=== PATIENT | female | born 1955 | race Caucasian/White ===

== ENCOUNTER → 2022-08-16 12:03 | Outpatient (BNVA) | payer MEDICARE, OTHER, SELFPAY | PROVIDERS: PCP Family Medicine; Visit Provider Specialist | DX: G25.0 Essential tremor (principal); G24.3 Spasmodic torticollis; G43.711 Chronic migraine without aura, intractable, with status migrainosus; R47.01 Aphasia | CPT/HCPCS: 99204 ==

== ENCOUNTER → 2022-09-29 07:32 | Outpatient (BNVA) | payer MEDICARE, OTHER, SELFPAY | PROVIDERS: PCP Family Medicine; Visit Provider Specialist | DX: G24.3 Spasmodic torticollis (principal); G25.0 Essential tremor; G43.711 Chronic migraine without aura, intractable, with status migrainosus; G31.84 Mild cognitive impairment of uncertain or unknown etiology | CPT/HCPCS: 64616; 99213; J0585 ==

== ENCOUNTER → 2023-01-02 13:37 | Outpatient (BNVA) | payer MEDICARE, OTHER, SELFPAY | PROVIDERS: PCP Family Medicine; Visit Provider Specialist | DX: G24.3 Spasmodic torticollis (principal); G25.0 Essential tremor; G31.84 Mild cognitive impairment of uncertain or unknown etiology; M54.50 Low back pain, unspecified | CPT/HCPCS: 99214 ==

== ENCOUNTER → 2023-02-02 11:56 | Outpatient (BNVA) | payer MEDICARE, OTHER, SELFPAY | PROVIDERS: PCP Family Medicine; Visit Provider Specialist | DX: G25.0 Essential tremor (principal); G31.84 Mild cognitive impairment of uncertain or unknown etiology; G24.3 Spasmodic torticollis | CPT/HCPCS: 64616; J0585 ==

== ENCOUNTER → 2023-05-11 10:20 | Outpatient (BNVA) | payer OTHER, SELFPAY | PROVIDERS: PCP Family Medicine; Visit Provider Specialist | DX: G24.3 Spasmodic torticollis (principal); G31.84 Mild cognitive impairment of uncertain or unknown etiology; G43.711 Chronic migraine without aura, intractable, with status migrainosus | CPT/HCPCS: 64616; 96116; 99214; J0585 ==

== ENCOUNTER → 2023-08-17 10:28 | Outpatient (BNVA) | payer OTHER, SELFPAY | PROVIDERS: PCP Family Medicine; Visit Provider Specialist | DX: G24.3 Spasmodic torticollis (principal); G31.84 Mild cognitive impairment of uncertain or unknown etiology; G25.0 Essential tremor | CPT/HCPCS: 99214 ==

== ENCOUNTER → 2023-11-16 09:39 | Outpatient (BNVA) | payer OTHER, SELFPAY | PROVIDERS: PCP Family Medicine; Visit Provider Specialist | DX: G24.3 Spasmodic torticollis (principal); M25.512 Pain in left shoulder; M50.022 Cervical disc disorder at C5-C6 level with myelopathy | CPT/HCPCS: 20610; 64616; 99214; J0585; J1010; J3490 ==

== ENCOUNTER 2023-12-22 15:24 | Outpatient (CLI) | payer OTHER, SELFPAY ==
--- NOTE | 2023-12-22 16:00 | MR_ITS ---
WS: [id number] MRI LEFT SHOULDER NONCONTRAST TECHNIQUE: Sagittal T2, coronal T1, T2 and proton density imaging. Axial gradient PDE imaging. CLINICAL INFORMATION: M25.512 - Pain in left shoulder COMPARISON: None. FINDINGS: Moderate degenerative arthritis AC joint with slight subacromial spurring. Mild downsloping acromion with slight impingement distal supraspinatus. Tendinopathy distal supraspinatus. Mild chronic thinnin g of the supraspinatus. Trace subacromial fluid. Normal infraspinatus. Normal teres minor. Normal subscapularis. Normal biceps tendon in the bicipital groove. Intra-articular biceps tendon appears intact. Biceps labral anchor appears intact. Glenoid l abrum appears grossly normal. No other acute findings. MR/MR shoulder LT wo con* [id number] IMPRESSION: Some images degraded by motion. 1. Moderate arthritis AC joint with subacromial spurring. Impingement on the d istal supraspinatus with tendinopathy and chronic thinning. 2. Rotator cuff is otherwise intact. 3. Normal biceps tendon in the bicipital groove. 4. Intra-articular biceps tendon appears intact. 5. Moderate degenerative narrowing of the glenohumeral articulation. 6. No other acute findings.
== END 2023-12-22 15:25 | disposition home or self-care (01) ==
LOC: RAD 15:24
PROVIDERS: PCP Family Medicine; Visit Provider Specialist
DX: M25.512 Pain in left shoulder (principal); M19.012 Primary osteoarthritis, left shoulder
CPT/HCPCS: 73221

== ENCOUNTER → 2024-02-22 09:48 | Outpatient (BNVA) | payer OTHER, SELFPAY | PROVIDERS: PCP Family Medicine; Visit Provider Specialist | DX: R03.0 Elevated blood-pressure reading, without diagnosis of hypertension (principal); G24.3 Spasmodic torticollis; G31.84 Mild cognitive impairment of uncertain or unknown etiology; M50.022 Cervical disc disorder at C5-C6 level with myelopathy; M25.512 Pain in left shoulder | CPT/HCPCS: 64616; 99213; J0585 ==

== ENCOUNTER → 2024-03-11 11:38 | Outpatient (BNVA) | payer OTHER, SELFPAY | PROVIDERS: PCP Family Medicine; Visit Provider Specialist | DX: M19.012 Primary osteoarthritis, left shoulder (principal) | CPT/HCPCS: 20610; 73030; 99204; J1100; J2795; J3301 ==

== ENCOUNTER → 2024-04-03 14:42 | Outpatient (BNVA) | payer OTHER, SELFPAY | PROVIDERS: PCP Family Medicine; Visit Provider Specialist | DX: M19.012 Primary osteoarthritis, left shoulder (principal) | CPT/HCPCS: 99213 ==

== ENCOUNTER → 2024-05-31 11:52 | Outpatient (BNVA) | payer OTHER, SELFPAY | PROVIDERS: PCP Family Medicine; Visit Provider Specialist | DX: R03.0 Elevated blood-pressure reading, without diagnosis of hypertension (principal); G24.3 Spasmodic torticollis; G31.84 Mild cognitive impairment of uncertain or unknown etiology; M50.022 Cervical disc disorder at C5-C6 level with myelopathy; M25.512 Pain in left shoulder | CPT/HCPCS: 64616; 99213; J0585 ==

== ENCOUNTER → 2024-06-14 07:28 | Outpatient (BNVA) | payer OTHER, SELFPAY | PROVIDERS: PCP Family Medicine; Visit Provider Specialist | DX: M19.012 Primary osteoarthritis, left shoulder (principal); Z71.89 Other specified counseling | CPT/HCPCS: 20610; J1100; J2795; J3301 ==

== ENCOUNTER → 2024-08-30 11:41 | Outpatient (BNVA) | payer OTHER, SELFPAY | PROVIDERS: PCP Family Medicine; Visit Provider Specialist | DX: G24.3 Spasmodic torticollis (principal); G31.84 Mild cognitive impairment of uncertain or unknown etiology; R03.0 Elevated blood-pressure reading, without diagnosis of hypertension; M50.022 Cervical disc disorder at C5-C6 level with myelopathy; M25.512 Pain in left shoulder | CPT/HCPCS: 64616; 99212; J0585 ==

== ENCOUNTER → 2024-09-13 07:28 | Outpatient (BNVA) | payer OTHER, SELFPAY | PROVIDERS: PCP Family Medicine; Visit Provider Specialist | DX: M19.012 Primary osteoarthritis, left shoulder | CPT/HCPCS: 20610; J1100; J2795; J3301 ==

== ENCOUNTER → 2024-12-06 11:24 | Outpatient (BNVA) | payer OTHER, SELFPAY | PROVIDERS: PCP Family Medicine; Visit Provider Specialist | DX: G24.3 Spasmodic torticollis (principal) | CPT/HCPCS: 64616; J0585; J9999 ==

== ENCOUNTER → 2024-12-11 07:38 | Outpatient (BNVA) | payer OTHER, SELFPAY | PROVIDERS: PCP Family Medicine; Visit Provider Specialist | DX: G31.84 Mild cognitive impairment of uncertain or unknown etiology (principal); G30.9 Alzheimer's disease, unspecified; G24.3 Spasmodic torticollis; G25.0 Essential tremor | CPT/HCPCS: 36415; 82542; 83520; 84439; 84443; 96116; 99214 ==

== ENCOUNTER → 2024-12-13 07:41 | Outpatient (BNVA) | payer OTHER, SELFPAY | PROVIDERS: PCP Family Medicine; Visit Provider Specialist | DX: M19.012 Primary osteoarthritis, left shoulder (principal) | CPT/HCPCS: 20610; J1100; J2795; J3301; J9999 ==

== ENCOUNTER → 2025-03-06 11:04 | Outpatient (BNVA) | payer OTHER, SELFPAY | PROVIDERS: PCP Family Medicine; Visit Provider Specialist | DX: G24.3 Spasmodic torticollis (principal) | CPT/HCPCS: 64616; 99214; J0585; J9999 ==

== ENCOUNTER → 2025-03-28 08:10 | Outpatient (BNVA) | payer OTHER, SELFPAY | PROVIDERS: PCP Family Medicine; Visit Provider Specialist | DX: M19.012 Primary osteoarthritis, left shoulder (principal) | CPT/HCPCS: 20610; J1100; J2795; J3301; J9999 ==

== ENCOUNTER → 2025-06-12 09:06 | Outpatient (BNVA) | payer OTHER, SELFPAY | PROVIDERS: PCP Family Medicine; Visit Provider Specialist | DX: G24.3 Spasmodic torticollis (principal); G31.84 Mild cognitive impairment of uncertain or unknown etiology; G25.0 Essential tremor | CPT/HCPCS: 64616; 99212; J0585; J9999 ==

== ENCOUNTER → 2025-07-04 08:12 | Outpatient (BNVA) | payer OTHER, SELFPAY | PROVIDERS: PCP Family Medicine; Visit Provider Specialist | DX: M19.012 Primary osteoarthritis, left shoulder (principal) | CPT/HCPCS: 20610; J1100; J2795; J3301; J9999 ==